=== PATIENT | male | born 1980 | race African-American/Black ===

== ENCOUNTER 2020-04-25 17:32 | Emergency (ER) | payer OTHER ==
[2020-04-25 17:39] VITALS: BP 111/72; PULSE 96; RESP 16; TEMP 97.7
[2020-04-25] MEDS ORDERED: DIPH,PERTUS(ACELL)TETVAC-LF 0.5 ML VIAL IM ONE (18:03)
[2020-04-25] MEDS ORDERED: LIDOCAINE 1% INJ 10MG/ML (20 ML MDV) SQ ONE (18:03)
--- NOTE | 2020-04-25 18:39 | ED ---
Fall HPI - General Chief Complaint: Fall Stated Complaint: Fall, head lac Time Seen by Provider: 04/25/20 17:41 Source: patient Mode of arrival: ambulatory - History of Present Illness Initial Comments: Patient is a 39-year-old male presenting to the emergency department for a laceration on the left side of his head. Patient states he came outside of his house to speak with his landlord and was sitting on the railing of the porch when he lost his balance and fell backwards, striking his head on the pavement. There was no LOC, no nausea or vomiting. Patient states he does not have a headache. He states his only complaint is the laceration and his lanlord said that he could use stitches. Patient denies being on blood thinners. He denies any pain in his extremities, and no neck pain or back pain. He denies any abdominal pain. Patient does not remember his last tetanus vaccine. He has no further complaints. Upon arrival to the ER, his vitals are stable. - Related Data Allergies Allergy/AdvReac Type Severity Reaction Status Date / Time No Known Allergies Allergy Verified 04/25/20 17:34 Review of Systems ROS Statement: Those systems with pertinent positive or pertinent negative responses have been documented in the HPI. ROS Other: All systems not noted in ROS Statement are negative. Past Medical History Past Medical History: No Reported History History of Any Multi-Drug Resistant Organisms: None Reported Past Surgical History: No Surgical Hx Reported Past Psychological History: No Psychological Hx Reported Smoking Status: Never smoker Past Alcohol Use History: None Reported, Occasional Past Drug Use History: None Reported General Exam - General Exam Comments Initial Comments: GENERAL: Well-appearing, well-nourished and in no acute distress. HEAD: Atraumatic, normocephalic. No pain with palpation, no signs of basal skull fracture. EYES: Pupils equal round and reactive to light, extraocular movements intact, sclera anicteric, conjunctiva are normal. ENT: TMs normal, nares patent, oropharynx clear without exudates. Moist mucous membranes. NECK: Normal range of motion, supple without lymphadenopathy or JVD. LUNGS: Breath sounds clear to auscultation bilaterally and equal. No wheezes rales or rhonchi. HEART: Regular rate and rhythm without murmurs, rubs or gallops. ABDOMEN: Soft, nontender, normoactive bowel sounds. No guarding, no rebound. No masses appreciated. : Deferred EXTREMITIES: Normal range of motion, no pitting or edema. No clubbing or cyanosis. NEUROLOGICAL: Cranial nerves II through XII grossly intact. Normal speech, normal gait. PSYCH: Normal mood, normal affect. SKIN: Warm, Dry, normal turgor, no rashes. Patient has a 1 cm laceration to the top of the head, left sided. There is no hematoma. Limitations: no limitations Course Vital Signs 04/25/20 17:34 Temperature 97.7 F Pulse Rate 96 Respiratory 16 Rate Blood Pressure 111/72 O2 Sat by Pulse 98 Oximetry Procedures - Laceration Laceration #1 Consent Obtained: verbal consent Indication: laceration Site: scalp Size (cm): 1 Description: linear Depth: simple, single layer Anesthetic Used: lidocaine 1% Anesthesia Technique: local infiltration Amount (mls): 2 Pre-repair: irrigated extensively Patient Tolerated Procedure: well Additional Comments: 2 karina were used to close the wound. Medical Decision Making - Medical Decision Making Patient is a 39-year-old male here for a 1 cm laceration to his scalp after falling backwards. His exam is unremarkable, no acute neuro deficits. 2 karina were used to close close his wound. Patient had a procedure well. His tetanus vaccine was also updated today. He will karina removed in 5-7 days. He is stable for discharge, he is in agreement with this plan of care. Return parameters were discussed with the patient he verbalizes understanding. Case discussed with Dr. zhou. Disposition Clinical Impression: Fall, Laceration of scalp Disposition: HOME SELF-CARE Condition: Stable Instructions (If sedation given, give patient instructions): [facility] (ED) Additional Instructions: Please return to the Emergency Department if symptoms worsen or any other concerns. Munday need to be removed in 5-7 days as discussed. Is patient prescribed a controlled substance at d/c from ED?: No Referrals: None,Stated [Primary Care Provider] - 1-2 days
== END 2020-04-25 17:45 | disposition home or self-care (01) ==
LOC: EC 17:32
DX: S01.01XA Laceration without foreign body of scalp, initial encounter (principal); W01.0XXA Fall on same level from slipping, tripping and stumbling without subsequent striking against object, initial encounter; Y92.89 Other specified places as the place of occurrence of the external cause
CPT/HCPCS: 90715; 99282; 12001; 90471; J2001